=== PATIENT | female | born 1985 | race African-American/Black ===

== ENCOUNTER 2024-06-23 15:47 | Outpatient (AMB) | payer OTHER, SELFPAY ==
[2024-06-23 15:54] VITALS: BP 152/70; PULSE 87; RESP 18; TEMP 37.4; O2SAT 98; BMI 34.1
--- NOTE | 2024-06-23 15:54 | A.OFFPC_ITS ---
Vital Signs 06/23/24 15:54 Height 4 ft 10 in Weight 163 lb BMI 34.1 BP 152/70 H Blood Pressure Location Lt brachial Position Sitting Respiration 18 Pulse 87 Pulse Source Pulse Oximeter Temp 99.4 F Temp Source Oral Pulse Oximetry (%) 98 Oxygen Delivery Method Room Air Intake Visit Reasons: Establish care Intake Note: Patient is a new patient here to establish care. Transferring care from [facility]. Patient does not recall previous PCP's name or address. Medical records have not been requested and have not received. Tax Compliance Manager Required: Yes Tax Compliance Manager Language: Special Education Para Professional Name: Used tablet- Hua Harrison [id number] Accompanied by: Self / Same As Patient Allergies No Known Allergies Allergy (Verified 06/23/24 16:33) Medication List - Last Reconciled 06/23/24 by OSCAR Seals aspirin 81 mg PO DAILY PRN Tobacco use date assessed: 06/23/24 Dental Screening Dental Screen Date: 06/23/24 Did you have a dental visit in the last 12 months?: Yes Did you have a dental problem in the last 6 months where you did not have access to dental care?: No Was dental information given to patient?: Patient has dentist HPI Establish care HPI Details Previous PCP: none Last visit: Last PE: 04/24-done in clinical informatics manager: OBGYN:will need a referral mammogram: [facility]-and she did not get the results Past medical history: high pressure Medications: aspirin 81 mg Family HX: Mother -DM, breast ca she had surgery but the cancer was aggressive Problem: Elevated blood pressure: 152/70, Rechecked blood pressure 156/98 left arm The patient reports that she does not have chest pain, but intermittently she has pain going down her left arm EKG-done, sinus rhythm Headache: That travels from bilateral shoulder up her neck into her head. The patient seems to be under intense stress and is consistent with tension headache soft mass in right upper quadrant of abdomen-will do an ultrasound of the abdomen she denies abdominal pain PFSH Surgical History Hx of section Family History (Updated 06/23/24 @ 17:03 by OSCAR Seals) Father No problems noted. Mother Diabetes Cancer Daughter Age: 8 Seasonal allergies Daughter Age: 14 No problems noted. Daughter Age: 21 No problems noted. Other Breast CA Social History (Updated 06/23/24 @ 16:18 by Kaylee Ramirez [facility]) Household Members Other:: Relatives and one daughter Housing: House Alcohol intake: current Patient Tobacco Use Status: Never used Tobacco e-Cigarette/Vaping Use: Never Used service: No Current occupational status: unemployed Cognitive needs: No Hearing needs: No Vision needs: Yes Questionnaire PHQ-9 Over the last 2 weeks, how often have you been bothered by any of the following problems? 1. Little interest or pleasure in doing things: not at all 2. Feeling down, depressed, or hopeless: nearly every day 3. Trouble falling or staying asleep, or sleeping too much: nearly every day 4. Feeling tired or having little energy: more than half the days 5. Poor appetite or overeating: not at all 6. Feeling bad about yourself - or that you are a failure or have let yourself or your family down: several days 7. Trouble concentrating on things, such as reading the newspaper or watching television: not at all 8. Moving or speaking so slowly that other people could have noticed. Or the opposite - being so fidgety or restless that you have been moving around a lot more than usual: not at all 9. Thoughts that you would be better off or of hurting yourself in some way: not at all Total score: 9 Depression Screening Interpretation: Positive Depression Screening Done: Yes 51155 - PHQ-9 Billing: Yes Source: Developed by Drs. Gerry Perry, Patricia Lal, Deven Del Valle and colleagues, with an educational nadia from [employer]. Thrive Questionnaire Date Thrive assessed: 06/23/24 I am a: Patient What is your living situation today?: I have a steady place to live Within the past 12 months, did the food you bought not last and you didn't have the money to get more?: Never true Within the past 12 months, did you worry whether your food would run out before you got money to buy more?: Never true Do you have trouble paying for medicines?: No Do you have trouble getting transportation to medical appointments?: No Do you have trouble paying your heating and electricity bill?: No Do you have trouble taking care of your child, family member or friend?: No Do you have trouble with day-to-day activities such as bathing, preparing meals, shopping, managing finances, etc.?: No Are you currently unemployed and looking for a job?: I choose not to answer this question Are you interested in more education?: No Please select the resources that you would like help with: None Currently or been in a relationship where the following occur: No concerns reported THRIVE Score: 0 AUDIT C Alcohol Use Questionnaire (AUDIT-C) 1. How often do you have a drink containing alcohol?: 2-4 times a month 2. How many drinks containing alcohol do you have on a typical day when you are drinking?: 1 or 2 3. How often do you have six or more drinks on one occasion?: Weekly Total Score: 5 HEATHER-7 AMB Questionnaire HEATHER-7 Date HEATHER - 7 assessed: 06/23/24 Feeling nervous, anxious, or on edge: 2 = More than half the days Not being able to stop or control worryin = Nearly every day Worrying too much about different things: 3 = Nearly every day Trouble relaxin = Nearly every day Being so restless that it is hard to sit still: 1 = Several days Becoming easily annoyed or irritable: 2 = More than half the days Feeling afraid as if something awful might happen: 1 = Several days Total HEATHER-7 score (0-4 normal; 5-9 mild; 10-14 moderate; 15-21 severe): 15 Source: Developed by Drs. Gerry Perry, Patricia Lal, Deven Del Valle and colleagues, with an educational nadia from [employer]. HEATHER-7 Assessment Billing HEATHER-7 Assessment Tool: HEATHER-7 Assessment 45997 Review of Systems Const Reports headache(s) (Intermittent) Eyes Denies loss of vision ENT Denies vertigo, Denies dizziness, Reports headache(s) (Intermittent) and Denies sore throat Card Denies chest pain, Denies leg edema and Denies lightheadedness Resp Denies cough, Denies hemoptysis and Denies wheezing GI Denies abdominal pain, Denies melena, Denies constipation, Denies diarrhea, Denies vomiting and Reports other (c/o mass in her abdomen) Denies urinary frequency, Denies dysuria and Denies urinary urgency Musc Denies arthralgias, Denies joint swelling, Denies numbness and Denies tingling Neuro Denies Abnormal speech present, Denies behavioral changes, Denies vertigo, Denies dizziness, Reports headache(s) (Intermittent), Denies loss of vision, Denies memory loss, Denies numbness and Denies tingling Psych Denies anxiety, Denies behavioral changes, Denies depression, Denies memory loss and Denies panic attacks Anthony/Lymph Denies easy bleeding and Denies easy bruising Aller/Immun Denies wheezing Physical exam (Primary Care) Vital Signs: Last Vital Signs Temp 99.4 F 06/23/24 15:54 Pulse 87 06/23/24 15:54 Resp 18 06/23/24 15:54 BP 152/70 H 06/23/24 15:54 Pulse Ox 98 06/23/24 15:54 Oxygen Delivery Method Room Air 06/23/24 15:54 BMI result Body Mass Index 34.1 Tobacco/Smoking Status: Tobacco use Status Tobacco use date assessed 06/23/24 06/23/24 16:32 Patient Tobacco Use Status Never used Tobacco 06/23/24 16:32 e-Cigarette/Vaping Use Never Used 06/23/24 16:32 PHQ-9: PHQ-9 Score PHQ-9: Total score 9 06/23/24 16:35 Depression Screening Interpretation: Positive Thrive Assessment: Date of Thrive Assessment Date Thrive assessed 06/23/24 06/23/24 16:32 Currently or been in a relationship where the following occur: No concerns reported Const General: healthy appearing, no acute distress, alert and awake Nutritional Appearance: well nourished Orientation/consciousness: oriented to person, oriented to place and oriented to time [facility] Ears: TM's normal bilaterally General nose exam: Normal nasal mucous membranes and turbinates present Eyes Conjunctivae: conjunctivae normal Sclerae: sclerae normal Pupils: Equal, round and reactive pupils present Neck Neck: Yes no lymphadenopathy and Yes no JVD Thyroid: Thyroid normal Carotids: no bruits Resp Effort & Inspection: normal respiratory effort and not tachypneic Auscultation: no crackles, no rales, no rhonchi and no wheezes Cardio Rate: regular rate Rhythm: regular rhythm Heart sounds: no murmurs and normal S1 and S2 GI Palpation (GI): Soft to palpation, nontender, no hepatomegaly and no splenomegaly Auscultation: normal bowel sounds Rectal Exam - Female: mass (right upper quadrant soft and nontender) Skin General skin exam: no rashes or lesions noted and dry skin Neuro General: oriented to person, oriented to place and oriented to time Cranial nerves: Yes Equal, round and reactive pupils present Speech: No Abnormal speech present Gait exam (Neuro): Normal gait present Motor exam (neuro): no tremor noted Extrem Right upper extremity: full ROM Left upper extremity: full ROM Right lower extremity: full ROM; no edema Left lower extremity: full ROM; no edema Psych Mental Status: mental status grossly normal Speech and movement: Normal speech and movement present Affect: normal affect Attitude: cooperative Thought process: Normal thought process present Office Procedures EKG 83119-[id number], Complete Coding Level of Care Code New Pt Level 5 (82806) Diagnoses Family hx-breast malignancy Z80.3 Mass of soft tissue of abdomen R19.00 Elevated blood pressure reading without diagnosis of hypertension R03.0 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 She was told that should get screened; which she did in [facility] but was unable to get the results. Will order a Mammogram (2) Mass of soft tissue of abdomen: Code(s): R19.00 - Intra-abdominal and pelvic swelling, mass and lump, unspecified site Category: Medical Plan: The patient has a soft mass in the right upper quadrant; she denies any abdominal pain. Will do a complete abdominal ultrasound (3) Elevated blood pressure reading without diagnosis of hypertension: Code(s): R03.0 - Elevated blood-pressure reading, without diagnosis of hypertension Category: Medical Plan: The patient reports that she was told that she has high blood pressure and she should see a supply service worker. Blood pressure elevated in office. The patient had a physical done at a clinic that showed her blood pressure 168/118 and she was recommended to follow up with her PCP. Amlodipine 10 mg was started-discussed with the patient to monitor her blood pressure and follow up in 6 weeks. 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 Will order a chest x-ray to rule out TB Orders: Orders Comprehensive Met. Panel Today R03.0 - Elevated blood-pressure reading, without diagnosis of hypertension, Z00.00 - Encounter for general adult medical examination without abnormal findings Comprehensive [place]. Panel Fast Today R03.0 - Elevated blood-pressure reading, without diagnosis of hypertension, Z00.00 - Encounter for general adult medical examination without abnormal findings Vitamin D 25-OH Total Today R03.0 - Elevated blood-pressure reading, without diagnosis of hypertension, Z00.00 - Encounter for general adult medical examination without abnormal findings UA CC w/rflx Micro + Cult Today R03.0 - Elevated blood-pressure reading, without diagnosis of hypertension, Z00.00 - Encounter for general adult medical examination without abnormal findings TSH reflex Free T4 Today R03.0 - Elevated blood-pressure reading, without diagnosis of hypertension, Z00.00 - Encounter for general adult medical examination without abnormal findings Glucose Fasting Today R03.0 - Elevated blood-pressure reading, without diagnosis of hypertension, Z00.00 - Encounter for general adult medical examination without abnormal findings XR chest 2V Today R76.11 - Nonspecific reaction to tuberculin skin test without active tuberculosis AMB EKG-In Office Today R03.0 - Elevated blood-pressure reading, without diagnosis of hypertension Lipid Panel Today R03.0 - Elevated blood-pressure reading, without diagnosis of hypertension, Z00.00 - Encounter for general adult medical examination without abnormal findings MM tomosynthesis screening BI Today Z80.3 - Family history of malignant neoplasm of breast Medications: New amlodipine 10 mg PO DAILY 30 days 30 tabs 3RF R03.0 - Elevated blood-pressure reading, without diagnosis of hypertension
== END 2024-06-23 17:25 | disposition home or self-care (01) ==
LOC: HO.HMCH 15:47
DX: R03.0 Elevated blood-pressure reading, without diagnosis of hypertension (principal); Z80.3 Family history of malignant neoplasm of breast; R19.00 Intra-abdominal and pelvic swelling, mass and lump, unspecified site; R76.11 Nonspecific reaction to tuberculin skin test without active tuberculosis

== ENCOUNTER → 2024-06-23 15:47 | Outpatient (BNVA) | payer OTHER, SELFPAY | DX: R19.00 Intra-abdominal and pelvic swelling, mass and lump, unspecified site (principal); R03.0 Elevated blood-pressure reading, without diagnosis of hypertension; R76.11 Nonspecific reaction to tuberculin skin test without active tuberculosis; Z80.3 Family history of malignant neoplasm of breast | CPT/HCPCS: 93005; 96127; 99202 ==

== ENCOUNTER 2024-07-27 08:41 | Outpatient (REF) | payer OTHER, SELFPAY ==
--- NOTE | ~2024-07-27 | XR_ITS ---
EXAMINATION: XR CHEST CLINICAL INFORMATION: R76.11 - Nonspecific reaction to tuberculin skin test without active tub... COMPARISON: None available. TECHNIQUE: 2 views of the chest were obtained. FINDINGS: No consolidation, pleural effusion or pneumothorax. Cardiomediastinal silhouette size is normal. No hyperinflation. Mild S-shaped curvature of the thoracolumbar spine. Abundant stool in the right hepatic flexure. XR/XR chest 2V IMPRESSION: No acute airspace disease. Electronically signed by: Emeka Pickett MD 07/28/2024 03:02 PM EDT
[2024-07-27 09:40] LABS: Appearance Urine Clear; Color Urine Yellow; Glucose Urine UA Negative (Negative); Leukocyte Esterase Urine Negative (Negative); Nitrite Urine Negative (Negative); PH 5.5 (5.0-9.0); Specific Gravity - Urine 1.025 (1.005-1.025); UMIC TRIGGER UACC YES; Urine Blood Moderate (2+) (Negative); Urine Ketones Trace mg/dL (Negative); Urine Protein Trace mg/dL (Neg-Trace)
[2024-07-27 09:44] LABS: Bacteria Urine 2+ (None Seen); Hyaline Casts Urine 0-2 /LPF (0-2); WBC Urine 0-5 /HPF (0-5)
[2024-07-27 10:29] LABS: Alanine Aminotransferase 17 U/L (0-31); Albumin Level 3.8 g/dL (3.5-5.0); Alkaline Phosphatase 64 U/L (39-117); Anion Gap 10 (12-20); Aspartate Amino Transferase 17 U/L (5-31); Bilirubin Total 0.5 mg/dL (0.0-1.0); Blood Urea Nitrogen 12 mg/dL (9-16); Calcium 8.6 mg/dL (8.4-10.2); Carbon Dioxide 25 mmol/L (22-29); Chloride 108 mmol/L (96-108); Cholesterol 202 mg/dL (<200); Estimated Glomerular Filt Rate > 60; Glucose Fasting 111 mg/dL (60-99); Glucose Random 111 mg/dL (60-115); HDL Cholesterol 44 mg/dL (>40); LDL Cholesterol Calculated 127 mg/dL (<100); Potassium 3.7 mmol/L (3.3-5.1); Sodium 139 mmol/L (135-145); Total Protein 6.6 g/dL (6.5-8.0); Triglycerides 156 mg/dL (<150)
[2024-07-27 10:33] LABS: TSH reflex Free T4 0.66 uIU/mL (0.32-4.0)
== END 2024-07-27 08:42 | disposition home or self-care (01) ==
LOC: HO.LAB 08:41
DX: Z00.00 Encounter for general adult medical examination without abnormal findings (principal); R03.0 Elevated blood-pressure reading, without diagnosis of hypertension; R76.11 Nonspecific reaction to tuberculin skin test without active tuberculosis
CPT/HCPCS: 36415; 71046; 80053; 80061; 81001; 82306; 84443

== ENCOUNTER → 2024-07-27 09:03 | Outpatient (BNV) | payer OTHER, SELFPAY | PROVIDERS: Visit Provider Radiology Diagnostic Radiology | DX: R76.11 Nonspecific reaction to tuberculin skin test without active tuberculosis (principal) | CPT/HCPCS: 71046 ==

== ENCOUNTER 2024-08-18 09:34 | Outpatient (REF) | payer MEDICAID, OTHER, SELFPAY | END 2024-08-18 09:35 | disposition home or self-care (01) | LOC: HO.MAMMO 09:34 | DX: Z12.31 Encounter for screening mammogram for malignant neoplasm of breast (principal); Z80.3 Family history of malignant neoplasm of breast | CPT/HCPCS: 77063; 77067 ==

== ENCOUNTER → 2024-08-18 10:45 | Outpatient (BNV) | payer OTHER, SELFPAY | PROVIDERS: Visit Provider Internal Medicine | DX: Z12.31 Encounter for screening mammogram for malignant neoplasm of breast (principal) | CPT/HCPCS: 77063; 77067 ==

== ENCOUNTER 2024-09-10 09:45 | Outpatient (REF) | payer MEDICAID, OTHER, SELFPAY ==
--- NOTE | ~2024-09-10 | MM_ITS ---
EXAMINATION: MM DIAGNOSTIC DIGITAL BREAST TOMOSYNTHESIS, BILATERAL CLINICAL INFORMATION: 38-year-old female call back from baseline mammogram for bilateral retroareolar diffusely scattered calcifications which have not been previously evaluated with magnification views. Patient has a strong family history of breast cancer mother was diagnosed 2 years ago age 64 had a double mastectomy with a very aggressive cancer which metastasized. COMPARISON: Mammography: Comparison is made with relevant prior exams. TECHNIQUE: Digital breast mammography with tomosynthesis is performed in both the craniocaudal and mediolateral oblique views along with computer-aided detection (CAD). FINDINGS: The breasts are heterogeneously dense, which may obscure small masses (ACR BI-RADS breast composition Category c). Bilateral scattered retroareolar calcifications some of which layer on magnification views bilaterally representing benign milk of calcium. No suspicious masses or other abnormal findings. Results are provided to the patient at time of visit by the technologist. MM/MM added views BI IMPRESSION: Bilateral scattered retroareolar calcifications some which layer on magnification views representing benign milk of calcium. Recommend 6 month follow-up given patient's strong family history of breast cancer with magnification views to demonstrate stability of the nonlayering calcifications. Patient has heterogeneous dense fibroglandular breast tissue in a strong family history of breast cancer including patient's mother with aggressive breast cancer. Recommend yearly breast MRI screening surveillance. Breast MRI will need to be ordered by the patient's providing clinician's. These findings and recommendations were discussed with the patient. ASSESSMENT: BI-RADS BI-RADS 3 - Probably benign finding(s) - 6 month follow-up suggested RECOMMENDATION: 6 Month F/U This patient's information was entered into a reminder system with a target due date for their next mammogram. Electronically signed by: Cesia Villa DO 09/10/2024 03:13 PM EDT
== END 2024-09-10 09:46 | disposition home or self-care (01) ==
LOC: HO.MAMMO 09:45
DX: R92.8 Other abnormal and inconclusive findings on diagnostic imaging of breast (principal)
CPT/HCPCS: 77066

== ENCOUNTER → 2024-09-10 10:00 | Outpatient (BNV) | payer SELFPAY | PROVIDERS: Visit Provider Internal Medicine | DX: R92.1 Mammographic calcification found on diagnostic imaging of breast (principal) | CPT/HCPCS: 77062; 77066 ==

== ENCOUNTER 2025-01-03 21:03 | Emergency (ER) | payer MEDICAID, OTHER, SELFPAY ==
--- NOTE | 2025-01-03 | ECG_ITS ---
Test Reason : CP Blood Pressure : */* mmHG Vent. Rate : 102 BPM Atrial Rate : 102 BPM P-R Int : 130 ms QRS Dur : 86 ms QT Int : 354 ms P-R-T Axes : 33 30 32 degrees QTcB Int : 461 ms Sinus tachycardia Nonspecific T wave abnormality Abnormal ECG No previous ECGs available Referred By: Generic ED Physician Electronically Signed By: JULIEN HEATH MD
--- NOTE | ~2025-01-03 | XR_ITS ---
CLINICAL HISTORY: pain 1 view chest Comparison: CR/WV/SR - XR CHEST 2 VIEWS - 07/27/24 09:17 EDT Findings: Low inspiration. Resultant mild vascular crowding centrally with subsegmental atelectasis. No consolidation or effusion. Heart size upper limits. No acute fractures. Impression: 1. Low inspiration with central vascular crowding and subsegmental atelectasis. This document has been electronically signed by: Robin Mccabe MD on 01/04/2025 01:37:47
[2025-01-03 21:27] VITALS: BP 181/103; PULSE 104; RESP 18; TEMP 36.8; O2SAT 98; BMI 50.9
[2025-01-03 21:54] LABS: MANUAL DIFF FLAG NO
[2025-01-03 21:55] LABS: Hematocrit 32.2 % (37.0-47.0); Hemoglobin 11.0 g/dl (12.0-16.0); Imm Gran Abs Auto 0.03 X10*3/uL (0.00-0.03); Imm Gran Pct Auto 0.3 % (0.0-0.4); Lymphocytes Absolute Auto 3.6 X10*3/uL (1.2-4.9); Mean Corpuscular HGB Conc 34.2 g/dl (31.0-35.0); Mean Corpuscular Hemoglobin 27.6 pg (27.0-33.0); Mean Corpuscular Volume 80.9 fL (80.0-98.0); NRBC Abs Auto 0.000 X10*3/uL (0.0-0.012); NRBC Pct Auto 0.0 /100WBC (0.0-0.2); Platelet Count 255 X10*3/uL (160-400); Red Blood Count 3.98 X10*6/uL (4.20-5.50); White Blood Count 9.9 X10*3/uL (4.8-10.8)
[2025-01-03 22:12] LABS: Alanine Aminotransferase 14 U/L (0-31); Albumin Level 4.2 g/dL (3.5-5.0); Alkaline Phosphatase 80 U/L (39-117); Anion Gap 12 (12-20); Aspartate Amino Transferase 18 U/L (5-31); Blood Urea Nitrogen 11 mg/dL (9-16); Calcium 9.5 mg/dL (8.4-10.2); Carbon Dioxide 25 mmol/L (22-29); Chloride 105 mmol/L (96-108); Creatinine Clr Calc Pharmacy 69.4; Estimated Glomerular Filt Rate > 60; Magnesium 2.0 mg/dL (1.6-2.6); Potassium 3.7 mmol/L (3.3-5.1); Sodium 138 mmol/L (135-145); Total Protein 7.4 g/dL (6.5-8.0)
[2025-01-03 22:23] LABS: Troponin-I High Sensitivity < 2.7 ng/L (<3.5-17.0)
[2025-01-03 23:06] LABS: NT Pro B Type Natriuretic Pept 61.3 pg/mL (<300)
--- NOTE | 2025-01-03 23:22 | ED_ITS ---
HPI - Chest Pain General Chief Complaint: Chest Pain Stated Complaint: headache, CP, increased BP Time Seen by Provider: 01/03/25 23:21 Source: patient Limitations: language barrier History of Present Illness ED Provider: Nimisha Pollack PA-C HPI narrative: 39-year-old female with a history of hypertension, morbid obesity who presents with multiple complaints. Patient states she has had an itchy rash over the left side of her face with left-sided headache for 1 day. Patient took Benadryl the rash is gone. Patient also states she has developed left anterior chest discomfort that has nonradiating, pain described as stabbing sensation. Pain worse with palpation of chest wall. Patient denies injury, new exercise or heavy lifting that could have precipitated her chest wall pain. Patient is hypertensive here in the emergency room, she has been off her medication for several days, she states she missed her cardiology appointment and has not refilled her amlodipine. Denies recent cough or cold symptoms, shortness of breath, fever. Related Data Home Medications ?Medication ?Instructions ?Recorded ?Confirmed aspirin 81 mg tablet,delayed 81 mg PO DAILY PRN 06/23/24 release Previous Rx's ?Medication ?Instructions ?Recorded amlodipine 10 mg tablet 10 mg PO DAILY #90 tabs 08/30 05/25 cholecalciferol (vitamin D3) 50 50 mcg PO DAILY #90 ca ps 09/21/24 mcg (2,000 unit) capsule amlodipine 10 mg tablet 10 mg PO DAILY #30 tabs 10/22 Allergies Allergy/AdvReac Type Severity Reaction Status Date / Time No Known Allergies Allergy Verified 01/03/25 21:33 Review of Systems 2 Review of Systems: Yes all other systems are reviewed and are negative Constitutional: Constitutional: Denies fatigue, Denies fever(s) and Reports headache(s) ENT: Denies dizziness and Reports headache(s) Cardiovascular: Cardiovascular: Reports chest pain and Reports dyspnea Respiratory: Respiratory: Reports dyspnea Gastrointestinal: Gastrointestinal: Denies abdominal pain and Reports nausea Neurologic: Denies dizziness and Reports headache(s) Endocrine: Endocrine: Denies fatigue [facility] Past Medical History Attestation statement: The following information was validated with the patient. Surgical History Hx of section Family History Family History (Updated 06/23/24 @ 17:03 by [employer]) Father No problems noted. Mother Diabetes Cancer Daughter Age: 9 Seasonal allergies Daughter Age: 15 No problems noted. Daughter Age: 21 No problems noted. Other Breast CA Social History Social History (Updated 06/23/24 @ 16:18 by Kaylee Ramirez CMA) Household Members Other:: Relatives and one daughter Housing: House Alcohol intake: current Alcohol intake frequency: a few times a week Patient Tobacco Use Status: Never used Tobacco Smoked in Last 30 Days: No e-Cigarette/Vaping Use: Never Used Use of substances other than those prescribed or required for medical reasons: No Advance Directives: No Advance Directives Information Provided: Yes Patient : No service: No Current occupational status: unemployed Cognitive needs: No Hearing needs: No Vision needs: Yes Physical Exam 2 Vital Signs: Vital Signs: Last Vital Signs Temp 98.1 F 01/04/25 02:12 Pulse 97 01/04/25 02:12 Resp 18 01/04/25 02:12 BP 158/89 H 01/04/25 02:12 Pulse Ox 99 01/04/25 02:12 O2 Del Method Room Air 01/04/25 02:12 BMI result Body Mass Index 50.9 Const: Other: Alert well-appearing no facial rash Orientation/consciousness: patient oriented x3 Chest: Other: Pain elicited with palpation of chest wall Resp: Effort & Inspection: normal respiratory effort Cardio: Other: Normal peripheral perfusion Skin: Other: Warm dry no rash Neuro: General: patient oriented x3, gait normal, no focal motor deficits and CN's II-XI intact bilaterally Psych: Other: Cooperative Medications Administered Discontinued Medications Generic Name Dose Route Start Last Admin Trade Name Inderjitq PRN Reason Stop Dose Admin Acetaminophen 975 mg 01/03/25 23:36 01/03/25 23:56 Acetaminophen 325 Mg Tablet PO 01/03/25 23:37 975 mg ONCE ONE Administration Amlodipine Besylate 10 mg 01/03/25 23:36 01/03/25 23:57 Amlodipine Besylate 10 Mg Tablet PO 01/03/25 23:37 10 mg ONCE ONE Administration Protocol Ketorolac Tromethamine 15 mg 01/03/25 23:36 01/03/25 23:58 Ketorolac Tromethamine 15 Mg/Ml Vial IM 01/03/25 23:37 15 mg ONCE ONE Administration Methocarbamol 1,500 mg 01/03/25 23:36 01/03/25 23:56 Methocarbamol 750 Mg Tablet PO 01/03/25 23:37 1,500 mg ONCE ONE Administration Medical Decision Making Medical Decision Making [facility] Narrative: 39-year-old female with a history of hypertension, morbid obesity who presents with multiple complaints. Patient states she has had an itchy rash over the left side of her face with left-sided headache for 1 day. Patient took Benadryl the rash is gone. Patient also states she has developed left anterior chest discomfort that has nonradiating, pain described as stabbing sensation. Pain worse with palpation of chest wall. Patient denies injury, new exercise or heavy lifting that could have precipitated her chest wall pain. Patient is hypertensive here in the emergency room, she has been off her medication for several days, she states she missed her cardiology appointment and has not refilled her amlodipine. Denies recent cough or cold symptoms, shortness of breath, fever. Problem: Morbid obesity History: Per patient I have considered the following differential diagnoses: ACS, chest wall strain, costochondritis, viral syndrome, pneumonia, allergic reaction, urticaria, angioedema hypertensive urgency, hypertensive emergency, end-organ damage Plan: In regard to the facial rash there was nothing there. In regard to the chest pain, the patient has minimal risk factor for coronary artery disease, she does have hypertension, she has been off her medication. She is not overtly hypertensive. Her exam was consistent with chest wall pain I can easily reproduce it with the palpation. Screening labs including EKG cardiac enzymes and chest x-ray were obtained. This is not costochondritis, she has not had any infectious symptoms. She also is not in hypertensive urgency or emergency. I have independently reviewed the following tests: Labs: No leukocytosis, not anemic, no electrolyte abnormality, not , troponin less than 2.7 EKG: Sinus tachycardia, rate of 102, no ischemic changes no ectopy QTC 354 Chest x-ray:Findings: Low inspiration. Resultant mild vascular crowding centrally with subsegmental atelectasis. No consolidation or effusion. Heart size upper limits. No acute fractures. Impression: 1. Low inspiration with central vascular crowding and subsegmental atelectasis. Differential Diagnosis Differential Diagnoses: The differential diagnosis associated with the presentation includes See medical decision-making Admission/Observation Consideration of admission/observation: Escalation of care including admission/observation considered Not applicable Lab Data MDM Lab Attestation statement: I reviewed the patient's lab results. 01/03/25 21:50 01/03/25 21:50 Labs: Lab Results 01/03/25 Range/Units 21:50 WBC 9.9 (4.8-10.8) X10*3/uL RBC 3.98 L (4.20-5.50) X10*6/uL Hgb 11.0 L (12.0-16.0) g/dl Hct 32.2 L (37.0-47.0) % MCV 80.9 (80.0-98.0) fL MCH 27.6 (27.0-33.0) pg MCHC 34.2 (31.0-35.0) g/dl RDW 15.0 (11.0-16.0) % Plt Count 255 (160-400) X10*3/uL MPV 10.9 (9.4-12.3) fL Immature Gran % (Auto) 0.3 (0.0-0.4) % Neut % (Auto) 56.2 (45-73) % Lymph % (Auto) 36.5 (20-40) % [place] % (Auto) 4.5 (2-11) % Eos % (Auto) 1.9 (0-4) % Baso % (Auto) 0.6 (0-2) % Lymph # (Auto) 3.6 (1.2-4.9) X10*3/uL [place] # (Auto) 0.5 (0.1-1.2) X10*3/uL Eos # (Auto) 0.2 (0.0-0.4) X10*3/uL Baso # (Auto) 0.1 (0.0-0.2) X10*3/uL Abs Immat Gran (auto) 0.03 (0.00-0.03) X10*3/uL Absolute Neuts (auto) 5.6 (2.0-8.3) x10*3/uL Absolute Nucleated RBC 0.000 (0.0-0.012) X10*3/uL Nucleated RBC % (auto) 0.0 (0.0-0.2) /100WBC Sodium 138 (135-145) mmol/L Potassium 3.7 (3.3-5.1) mmol/L Chloride 105 (96-108) mmol/L Carbon Dioxide 25 (22-29) mmol/L Anion Gap 12 (12-20) BUN 11 (9-16) mg/dL Creatinine 0.69 (0.5-1.4) mg/dL Estim Creat Clear Calc 69.4 Estimated GFR > 60 Random Glucose 127 H (60-115) mg/dL Calcium 9.5 D (8.4-10.2) mg/dL Magnesium 2.0 (1.6-2.6) mg/dL Total Bilirubin 0.3 (0.0-1.0) mg/dL AST 18 (5-31) U/L ALT 14 (0-31) U/L Alkaline Phosphatase 80 (39-117) U/L Troponin I High Sens < 2.7 (<3.5-17.0) ng/L NT-Pro-B Natriuret Pep 61.3 (<300) pg/mL Total Protein 7.4 (6.5-8.0) g/dL Albumin 4.2 (3.5-5.0) g/dL Independent Interpretation I performed an independent interpretation of an: EKG Radiology Impression Discussion of test interpretation with radiology: I have reviewed the radiologist's reading. Discharge Plan Discharge Clinical Impression: Headache, Chest wall pain Patient Disposition: Home, Self-Care Instructions: Chest Wall Pain (ED), General Headache (ED) Additional Instructions: All of your screening labs including a cardiac enzymes were normal. There were no concerning changes on the EKG in the chest x-ray is clear. You can take [id number] Tylenol 1000 mg taken every 8 hours with food, along with [id number] ibuprofen 600 mg taken every 6 hours with food, for headaches. Your chest discomfort was most consistent with chest wall pain. Both of those medications we will help chest wall pain as well. 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 I have provided you with a month's worth of medication. Prescriptions: New amlodipine 10 mg tablet 10 mg PO DAILY Qty: 30 0RF No Action amlodipine 10 mg tablet 10 mg PO DAILY Qty: 90 1RF cholecalciferol (vitamin D3) 50 mcg (2,000 unit) capsule 50 mcg PO DAILY Qty: 90 3RF aspirin 81 mg tablet,delayed release (DR/EC) 81 mg PO DAILY PRN Interventions: ED Discharge Assessment Last Done: 01/04/25 02:12 Discharge Date/Time: 01/04/25 02:23 Print Language: Lithuanian
[2025-01-03 23:55] VITALS: BP 186/101; PULSE 91; RESP 18; TEMP 36.7; O2SAT 98
[2025-01-04 02:12] VITALS: BP 158/89; PULSE 97; RESP 18; TEMP 36.7; O2SAT 99
== END 2025-01-04 02:23 | disposition home or self-care (01) ==
PROVIDERS: Emergency Provider Emergency Medicine
DX: R51.9 Headache, unspecified (principal); R07.89 Other chest pain; I10 Essential (primary) hypertension; E66.01 Morbid (severe) obesity due to excess calories; Z91.148 Patient's other noncompliance with medication regimen for other reason
CPT/HCPCS: 36415; 71045; 80053; 83735; 83880; 84484; 85025; 93005; 96372; 99284; 99285; J1885

== ENCOUNTER → 2025-01-03 21:12 | Outpatient (BNV) | payer SELFPAY | PROVIDERS: Emergency Provider Emergency Medicine; Visit Provider Internal Medicine Cardiovascular Disease | DX: R00.0 Tachycardia, unspecified (principal) | CPT/HCPCS: 93010 ==

== ENCOUNTER → 2025-01-04 00:02 | Outpatient (BNV) | payer OTHER, SELFPAY | PROVIDERS: Emergency Provider Emergency Medicine; Visit Provider Radiology Diagnostic Radiology | DX: R07.9 Chest pain, unspecified (principal) | CPT/HCPCS: 71045 ==

== ENCOUNTER 2025-01-11 15:41 | Outpatient (REF) | payer MEDICAID, OTHER, SELFPAY | END 2025-01-11 15:42 | disposition home or self-care (01) | LOC: HO.MRI 15:41 | DX: R92.30 Dense breasts, unspecified (principal); Z80.3 Family history of malignant neoplasm of breast | CPT/HCPCS: 77049; A9585 ==

== ENCOUNTER → 2025-01-11 15:47 | Outpatient (BNV) | payer SELFPAY | PROVIDERS: Visit Provider Internal Medicine | DX: Z80.3 Family history of malignant neoplasm of breast (principal) | CPT/HCPCS: 77049 ==